=== PATIENT | male | born 1975 | race Caucasian/White ===

== ENCOUNTER 2022-05-05 10:15 | Emergency (ER) | payer BC ==
[~2022-05-05] VITALS: Ht 175.3 cm; Wt 91.0 kg
[2022-05-05] MEDS ORDERED: MORPHINE SULFATE 4 MG/ML CPJ (NOT FOR IM USE) IV STA (10:57)
[2022-05-05] MEDS ORDERED: ONDANSETRON HCL 4MG/2ML INJ IV STA (10:57)
[2022-05-05] MEDS ORDERED: CEFAZOLIN 1000MG PREMIX 50 ML IV ONE (11:00)
[2022-05-05] MEDS ORDERED: SODIUM CHLORIDE 0.9% 1,000 ML IV ONE (11:00)
[2022-05-05] MEDS ORDERED: TETANUS, DIPHTHERIA, PERTUSSIS VAC/PF 0.5ML (>10YR OLD) IM ONE (11:00)
[2022-05-05] MEDS ORDERED: MORPHINE SULFATE 10 MG/ML CPJ IV ONE (12:45)
[2022-05-05] MEDS ORDERED: KETOROLAC 15MG/ML VIAL IV ONE (17:45)
[2022-05-06] MEDS ORDERED: MORPHINE SULFATE 4 MG/ML CPJ (NOT FOR IM USE) IV ONE (01:45)
[2022-05-06 01:46] VITALS: BP 130/77
== END 2022-05-06 02:36 | disposition short-term general hospital (02) ==
LOC: ER 10:15
DX: S42.401B Unspecified fracture of lower end of right humerus, initial encounter for open fracture (principal); W18.39XA Other fall on same level, initial encounter; Y93.89 Activity, other specified; Y92.89 Other specified places as the place of occurrence of the external cause; Y99.8 Other external cause status; M25.551 Pain in right hip; E78.00 Pure hypercholesterolemia, unspecified
CPT/HCPCS: 29105; 71045; 73080; 73090; 73502; 96365; 96375; 96376; 99291; J0690; J1885; J2270; J2405; J7030; Z7610; A4565